=== PATIENT | male | born 1975 | race Two or more races ===

== ENCOUNTER → 2019-11-21 | Outpatient (CLI) | payer SELFPAY ==
[2019-11-20 11:19] VITALS: BP 119/73
[~2019-11-21] MED LIST: ACET500T33 PO; CONTRAST GIVEN. MC PRN; Fluconazole PO; IOHEXOL 240 MG/ML 50ML VIAL. PO ONE
--- NOTE | 2019-11-21 10:54 | PDOC ---
Infectious Disease Note Subjective Subjective Pt is known to us, on IV invanz for diverticulitis with perforation feeling good, no abd pain, no n/v/d ROS ROS no cp, sob Vital Sign Vital Signs vitals stable, reviewed Physical Exam PHYSICAL EXAM GENERAL: The patient is propped up in chair, alert, in no apparent distress. HEENT: Pupils equally round and reactive. Oropharynx is pink and moist. NECK: Supple. LUNGS: Clear. HEART: S1, S2. ABDOMEN: , soft, nontender with bowel sounds present. no tenderness, no rebound, EXTREMITIES: No gross edema or cyanosis. SKIN: Warm to touch without signs of rash. NEUROLOGIC: Alert and answering questions appropriately. Objective Assessment 1. History of diverticulitis with microperforation and abscess, status post Interventional Radiology pigtail drain placement on 10/09/2019. 2. History of extended spectrum beta-lactamase positive Escherichia coli, Klebsiella, and yeast from 10/09/2019. 3. Leukocytosis. 4. Fever and chills. 5. Lactic acidosis. 6. Bilateral hydronephrosis and hydroureter. 7. Recent history of influenza A, treated. 8. History of alcohol and substance abuse. Plan Plan of Care ct pending hopefully d/c iv , po levaquin and flagyl for 7 days ESEQUIEL YOON MD Nov 21, 2019 10:54
--- NOTE | 2019-11-21 11:33 | RAD ---
Examination: CT ABDOMEN PELVIS WO CONTRAST History: Abscess Comparison/Correlation: 11/05/2019 CT Abd and Pelvis with contrast Findings: Axial images of the abdomen and pelvis were obtained without contrast. Sagittal and coronal reformatted images were provided. Oral contrast was administered. Assessment bases are clear. Liver, spleen, pancreas, adrenal glands, and gallbladder fossa are normal. There are no radiopaque system calculi. No hydronephrosis. Urinary bladder is unremarkable. Suture material involves the cecum. Appendix is not identified. The urinary bladder is unremarkable. Stranding involving the pelvis is noted in the omental region. Abscess collection is again seen with decreased gas component. It is best seen on axial images 69 through 74. It is best seen on sagittal image 34. It measures approximately 4.8 cm x 2.9 cm x 5.2 cm longitudinal. It is to the left of the distal sigmoid colon. No new collections identified. Diverticulosis of the colon is present. Bony structures unremarkable. Impression: Overall increase in size of the abscess collection within the pelvis to the left of the distal sigmoid colon by 1 cm transverse and by 1.5 cm longitudinal. Moderately increased stranding within the pelvis is noted primarily at the anterior omental region. No new collection. PQRS Compliance Statement: One or more of the following individualized dose reduction techniques were utilized for this examination: 1. Automated exposure control 2. Adjustment of the mA and/or kV according to patient size 3. Use of iterative reconstruction technique Electronically signed by: Aleksey Smith MD (11/21/2019 11:30 AM) [facility]
== END | disposition home or self-care (01) ==
LOC: CT 08:52
PROVIDERS: ATTEND Internal Medicine
DX: K65.1 Peritoneal abscess (principal); K57.30 Diverticulosis of large intestine without perforation or abscess without bleeding
CPT/HCPCS: 74176

== ENCOUNTER 2019-11-24 09:14 | Outpatient (CLI) | payer SELFPAY ==
[~2019-11-24] VITALS: Ht 160 cm; Wt 71.2 kg
[2019-11-24] VITALS (12 sets, daily range): BP systolic 99–139; BP diastolic 63–90
[~2019-11-24 09:14] MED LIST changes: -CONTRAST GIVEN. MC PRN; -IOHEXOL 240 MG/ML 50ML VIAL. PO ONE
[2019-11-24] MEDS ORDERED: LIDOCAINE WITH 8.4% SOD BICARB 3 ML DISP.SYRIN. ONE ×2 (11:31→12:08)
[2019-11-24] MEDS ORDERED: MIDAZOLAM HCL/PF 2 MG/2 ML VIAL. ONE (11:36)
[2019-11-24] MEDS ORDERED: fentaNYL PF VIAL 100 MCG/2 ML VIAL ONE (11:36)
[2019-11-24] MEDS ORDERED: fentaNYL PF VIAL 100 MCG/2 ML VIAL IV ONE (12:00)
[2019-11-24] MEDS ORDERED: MIDAZOLAM HCL/PF 2 MG/2 ML VIAL. IV ONE (12:00)
[2019-11-24] MEDS ORDERED: LIDOCAINE WITH 8.4% SOD BICARB 3 ML DISP.SYRIN. IJ ONE (12:00)
--- NOTE | 2019-11-24 12:47 | RAD ---
Procedure: CT-guided pelvic abscess drain placement Clinical Indication: Adult male with deep pelvic abscess, recurrent Sedation: Conscious sedation was administered with a total intraprocedural [id number] time of 15 minutes. The patient was monitored by a qualified independent observer throughout the time of sedation. Please refer to the medical record for exact doses of medications utilized to achieve moderate sedation. Antibiotics: None Sterility: The procedure was performed in its entirety using appropriate elements of sterile technique. Consent: The procedure was explained in its entirety to the patient or the patients designated advertising representative by a member of the treatment team, including a discussion of the risks, benefits and commonly accepted alternatives to the procedure, as well as the expected consequences of no therapy whatsoever. Discussion of the risks included, but was not limited to, those that are most frequent and those that are rare but possibly severe or life-threatening, as well as the possibility of unforeseen complications. Technique and Findings: Following informed consent, the patient was prepped and draped in usual sterile fashion. A pulmonary CT scan of the area of interest was performed. 1% lidocaine was used to achieve local anesthesia over the area of interest. A small dermatotomy was made. Under CT surveillance, a 19-gauge needle guide was advanced into the abscess and send misti pus was aspirated. The needle guide was then exchanged over wire for a 12 Syrian pigtail drainage catheter. The initial catheter placement was suboptimal. Consequently, this catheter was removed over a wire and another 12 Syrian drainage catheter was advanced over the wire and positioned within the abscess cavity. This catheter was sutured to the skin and placed to bulb suction. Complications: No immediate Impression: 1. CT-guided pelvic drain placement as described. PQRS Compliance Statement: One or more of the following individualized dose reduction techniques were utilized for this examination: 1. Automated exposure control 2. Adjustment of the mA and/or kV according to patient size 3. Use of iterative reconstruction technique
--- NOTE | 2019-11-24 14:53 | NUR ---
Discharge Note: ROGER FIERRO Discharge instructions and discharge home medications reviewed with Patient and a copy given. All questions have been answered and understanding verbalized. The following instructions and handouts were given: Post moderate sedation, and abdominal drain care and instructions given. lines and drains: PICC Line DL intact, and right lower abdomen MARILIN drain intact. Patient discharged to Home or Self Care with Friend via Wheelchair.
== END 2019-11-24 15:01 | disposition home or self-care (01) ==
LOC: INTRAD 09:14
PROVIDERS: ATTEND Internal Medicine Infectious Disease
DX: K65.1 Peritoneal abscess (principal)
CPT/HCPCS: 49406; 99152; A4215; C1729; C1894; J2250; J3010

== ENCOUNTER 2019-12-10 07:42 | Outpatient (CLI) | payer SELFPAY ==
[~2019-12-10] VITALS: Ht 165.1 cm; Wt 71.2 kg
[2019-12-10 08:10] VITALS: BP 111/70
[2019-12-10] MEDS ORDERED: IOHEXOL 240 MG/ML 50ML VIAL. ONE (08:16)
[2019-12-10 08:50] VITALS: BP 104/71
--- NOTE | 2019-12-10 09:00 | NUR ---
Discharge Note: Lili FIERRO Discharge instructions and discharge home medications reviewed with Patient and a copy given. All questions have been answered and understanding verbalized. The following instructions and handouts were given: bulb drain Pt to Outpt for scheduled infusion. Bulb drain remains intact. Instructed to follow up with surgeon for plan of care. Patient discharged to Home or Self Care with Self via Ambulated. HAYLEY RN Addendum: 12/10/19 at 0903 by GERALDINE MONGE RN Amended: Links added.
--- NOTE | 2019-12-10 17:29 | RAD ---
Abscessogram 12/10/2019 INDICATION: Evaluate for possible communication between for or residual abscess cavity in the colon Discussion: The risks and benefits were discussed the patient. Informed consent was obtained. The patient was placed in supine position. Club Director imaging demonstrates a pigtail drain projecting over the pelvic midline. Contrast was administered through the drain, all all of which flows into the rectosigmoid colon. The drain was flushed and left in place. A MARILIN bulb replaced. No immediate complications were identified. Total fluoroscopy time:: 1.7 MIN Dose area product: 17 [id number] IMPRESSION: Karl communication of the previously drained abscess cavity with the rectosigmoid colon
== END 2019-12-10 09:00 | disposition home or self-care (01) ==
LOC: INTRAD 07:42
PROVIDERS: ATTEND Physician Assistant Medical
DX: K63.0 Abscess of intestine (principal); Z91.041 Radiographic dye allergy status
CPT/HCPCS: 49424; 76080